=== PATIENT | male | born 1995 | race African-American/Black ===

== ENCOUNTER 2018-02-03 10:17 | Emergency (ER) | payer OTHER ==
[~2018-02-03] VITALS: Ht 170.2 cm; Wt 106.1 kg
[~2018-02-03 10:17] MED LIST: LEXAPRO5 MG; NORVASC10 MG PO; TRILEPTAL300 MG PO; VASOTEC20 MG; VYVANSE30 MG PO
[2018-02-03 10:38] LABS: ABSOLUTE BASOPHILS 0.1 thou/uL (0.0-0.2); ABSOLUTE EOSINOPHILS 0.3 thou/uL (0.0-0.7); ABSOLUTE LYMPHOCYTES 1.7 thou/uL (0.8-5.3); ABSOLUTE MONOCYTES 0.6 thou/uL (0.0-1.2); ABSOLUTE NEUTROPHILS 4.4 thou/uL (1.6-8.1); BASOPHILS 0.8 %; EOSINOPHILS 4.1 %; HEMATOCRIT 46.6 % (42.0-52.0); HEMOGLOBIN 15.9 gm/dL (14.0-18.0); LYMPHOCYTES 24.6 %; MCH 31.3 pg (26.0-34.0); MCHC 34.2 g/dL (28.0-37.0); MCV 91.7 fL (80.0-100.0); MONOCYTES 8.1 %; MPV 9.6 fl. (7.2-11.1); NUCLEATED RBCS 0 /100WBC; PLATELET COUNT* 164 thou/uL (150-400); POLYS 62.4 %; RBC 5.08 mil/uL (4.50-6.00); RDW-CV 13.7 % (10.5-14.5)
[2018-02-03 10:51] LABS: CREATININE 1.1 mg/dL (0.6-1.3); POTASSIUM 3.8 mmol/L (3.5-5.1)
[2018-02-03 10:56] LABS: ALBUMIN 3.9 g/dL (3.4-5.0); TOTAL BILIRUBIN 0.6 mg/dL (<0.1-1.0); TOTAL PROTEIN 7.1 g/dL (6.4-8.2)
[2018-02-03 13:21] VITALS: BP 144/93
--- NOTE | 2018-02-03 15:27 | EKG ---
[place] [address] ELECTROCARDIOGRAM REPORT Name: RACHEL GONSALEZ Room: [facility]#: [id number] Admission: 02/03/18 Attend Phys: Discharge: 02/03/18 Date of : [birth year] Report #: [id number] THIS REPORT FOR: //name// [facility] ED Test Date: 2018-02-03 Test Time: 11:07:18 Pat Name: RACHEL GONSALEZ Department: Room: Gender: M [employer] Smoother: westley lnio : 1995 Requested By: Charlotte Mccabe Order Number: [id number] MD: Francisco Pak Measurements Intervals [place] Rate: 62 P: 17 NE: 188 QRS: 14 QRSD: 86 T: 4 QT: 406 QTc: 413 Interpretive Statements Sinus rhythm Consider left atrial enlargement Early repolarization Compared to ECG 03/07/2017 19:49:57 Sinus bradycardia no longer present Atrial premature complex(es) no longer present Electronically Signed On 02-03-2018 15:27:45 CDT by Francisco Pak [email or web address] <ELECTRONICALLY SIGNED> By: Francisco Pak MD, FACC 02/03/18 1527 1107 [id number] Francisco Pak MD, FAC /EPI
== END 2018-02-03 13:22 | disposition home or self-care (01) ==
LOC: M.ERS 10:17
PROVIDERS: Physician Assistant
DX: I95.1 Orthostatic hypotension (principal); I10 Essential (primary) hypertension